=== PATIENT | female | born 1965 | race Caucasian/White ===

== ENCOUNTER 2020-10-06 07:03 | Day surgery (SDC) | payer MEDICAID ==
[2020-10-06] MEDS ORDERED: fentaNYL 100 MCG/2 ML SDV ONE (07:19)
[2020-10-06] MEDS ORDERED: Propofol 200 MG/20 ML SDV ONE (07:19)
[2020-10-06] MEDS ORDERED: Midazolam 1 MG/ML 2 ML SDV ONE (07:19)
[2020-10-06] MEDS ORDERED: Lactated Ringers 1,000 ML IV ONE (07:30)
[2020-10-06] MEDS ORDERED: Cyanocobalamin (Vitamin B12) 1,000 MCG/ML SDV IM ONE (07:30)
[2020-10-06] MEDS ORDERED: Glycopyrrolate 0.2 MG/ML 2 ML SDV IVPUSH ONE (08:15)
[2020-10-06] MEDS ORDERED: MVI, Adult with Vitamin K 10 ML, Thiamine 200 MG, Zinc/Copper/Manganese/Selenium 1 ML i... IV ONE ×4 (08:30)
[2020-10-06] MEDS ORDERED: Ondansetron 4 MG/2 ML SDV ONE (09:15)
[2020-10-06 10:09] VITALS: PULSE 77
[2020-10-06 10:28] VITALS: BP 117/72
--- NOTE | 2020-10-09 07:19 | OR ---
DATE OF PROCEDURE: 10/06/2020 SURGEON: Sushant Petty MD PREOPERATIVE DIAGNOSIS: Laryngopharyngeal dysphagia, status post Jose-en-Y gastric bypass. POSTOPERATIVE DIAGNOSIS: Laryngopharyngeal dysphagia with normal upper gastrointestinal endoscopic examination, status post Jose-en-Y gastric bypass. OPERATIVE PROCEDURE: Upper gastrointestinal endoscopy. ANESTHESIA: IV sedation. INDICATION FOR PROCEDURE: This is a 55-year-old status post a partial gastrectomy procedure identical to a Jose-en-Y gastric bypass in 2016. She presents with some dysphagia referable to the laryngopharyngeal area and wishes to proceed with upper GI endoscopy with dilation and/or biopsies as indicated. Potential risks including bleeding and perforation were discussed, and the patient wishes to proceed. DETAILS OF PROCEDURE: The patient was taken to the operating room, placed in the left lateral decubitus position. IV sedation was administered after which the upper GI endoscope was passed orally through the length of the esophagus, into the gastric pouch, from there through the gastrojejunostomy and roughly 20 cm into the Jose limb. Overall the examination was entirely normal. There were no abnormalities noted in the laryngopharyngeal area, upper esophageal sphincter, esophageal body, or EG junction. Gastric pouch was normally sized without significant inflammation, and there was no stricturing or inflammation at the gastrojejunostomy or within the remaining portion of the Jose limb. No bile or other signs of small bowel obstruction were present within the Jose limb. The scope was withdrawn, the above findings reconfirmed, and the procedure then concluded. The plan at this point will be to set the patient up for an x-ray and swallow study with a speech pathology evaluation to look at the issue of the laryngopharyngeal dysphagia. Otherwise followup with Prisca Judge will be in 1 month. Sushant Petty MD /[id number]
== END 2020-10-06 10:35 | disposition home or self-care (01) ==
LOC: JP.SDS 07:03
PROVIDERS: ATTEND Surgery
DX: R13.19 Other dysphagia (principal); G89.29 Other chronic pain; Z88.0 Allergy status to penicillin; Z88.5 Allergy status to narcotic agent; Z88.8 Allergy status to other drugs, medicaments and biological substances; Z98.84 Bariatric surgery status; Z87.891 Personal history of nicotine dependence
CPT/HCPCS: 43235; J2250; J2405; J2704; J3010; J3411; J3420; J3490; J7120

== ENCOUNTER 2022-08-10 14:35 | Emergency (ER) | payer OTHER, MEDICAID ==
[2022-08-10 14:44] VITALS: BP 147/93; PULSE 115
[2022-08-10] MEDS ORDERED: Bacitracin Oint 1 GM U/D Packet TOP ONE (15:00)
== END 2022-08-10 15:25 | disposition home or self-care (01) ==
LOC: JP.ED 14:35
DX: S20.212A Contusion of left front wall of thorax, initial encounter (principal); S80.811A Abrasion, right lower leg, initial encounter; I10 Essential (primary) hypertension; E10.9 Type 1 diabetes mellitus without complications; E66.9 Obesity, unspecified; Z68.23 Body mass index [BMI] 23.0-23.9, adult; Z88.6 Allergy status to analgesic agent; Z88.0 Allergy status to penicillin; Z88.5 Allergy status to narcotic agent; Z79.899 Other long term (current) drug therapy; Z90.49 Acquired absence of other specified parts of digestive tract; Z90.710 Acquired absence of both cervix and uterus; V47.9XXA Unspecified car occupant injured in collision with fixed or stationary object in traffic accident, initial encounter; Y92.410 Unspecified street and highway as the place of occurrence of the external cause
CPT/HCPCS: 73590-26-RT; 73590-RT; 99284